=== PATIENT | male | born 1990 | race Caucasian/White ===

== ENCOUNTER 2020-10-28 23:48 | Emergency (ER) | payer SELFPAY ==
[2020-10-29 00:41] LABS: BLOOD UREA NITROGEN,BUN 10 mg/dL (7.0-18.0); CARBON DIOXIDE,CO2 26.4 mmol/L (21.0-32.0); CHLORIDE,CL 101 mmol/L (98-107); GLUCOSE RANDOM 136 mg/dL (74-106); POTASSIUM,K 4.4 mmol/L (3.5-5.1); SODIUM,NA 139 mmol/L (136-148)
[2020-10-29] MEDS ORDERED: Sodium Chloride 0.9% 2.5 ML Syringe FLUSH PRN (01:15)
[2020-10-29] MEDS ORDERED: Sodium Chloride 0.9% 1,000 ML IV ONE (01:15)
[2020-10-29] MEDS ORDERED: Sodium Chloride 0.9% 10 ML Syringe FLUSH PRN (01:15)
[2020-10-29] MEDS ORDERED: Iopamidol 755 MG/ML 500 ML Multipack Bottle IVPUSH STA (01:47)
--- NOTE | 2020-10-29 02:14 | CT ---
INDICATION: Abdominal pain TECHNIQUE: CT Abdomen and pelvis with i.v. contrast. Coronal and sagittal reformats were obtained. CONTRAST: 100 mL Isovue 370 COMPARISON: None FINDINGS: Lower chest: Unremarkable. Liver: Unremarkable. Spleen: Moderate splenomegaly is present measuring 16.8 cm. Pancreas: Unremarkable. Gallbladder: Unremarkable. Kidney: Excretion of contrast into the renal collecting systems noted, which limits evaluation for the presence of stones. Adrenal: Unremarkable. Bowel: Moderate wall thickening in the ascending colon is present with surrounding inflammatory changes and a thickened diverticulum seen on image 102. The appendix is normal in appearance and size. Vascular: Unremarkable. Lymph: Unremarkable. Peritoneum: Unremarkable. No pneumoperitoneum is seen. No significant ascites is noted. Pelvis: Unremarkable. Soft tissue: Unremarkable. Bone: Unremarkable for age. IMPRESSIONS: 1. Moderate wall thickening in the ascending colon is present with surrounding inflammatory changes and a thickened diverticulum seen on image 102. These findings are consistent with acute right-sided diverticulitis. No adjacent peridiverticular abscess is seen. 2. Moderate splenomegaly is present measuring 16.8 cm. Dictated by Jude Hamlin MD @ 10/29/2020 2:11:23 AM Please note that all CT scans at this facility use dose modulation, iterative reconstruction, and/or weight-based dosing when appropriate to reduce radiation dose to as low as reasonably achievable. Dictated by: Jude Hamlin MD @ 10/29/2020 02:11:31 (Electronically Signed)
[2020-10-29] MEDS ORDERED: metroNIDAZOLE 250 MG Tab PO ONE (02:33)
[2020-10-29] MEDS ORDERED: Ciprofloxacin 500 MG Tab PO ONE (02:33)
[2020-10-29] MEDS ORDERED: Amoxicillin/Clavulanate K 875-125 MG Tab PO ONE (02:47)
--- NOTE | 2020-10-29 02:50 | EDM.PDOC ---
ED HPI GENERAL MEDICAL PROBLEM - General Chief Complaint: Abdominal Pain Stated Complaint: POSSIBLE APPENDICITIS Time Seen by Provider: 10/29/20 00:50 Source of Information: Reports: Patient, Family - History of Present Illness INITIAL COMMENTS - FREE TEXT/NARRATIVE: History of present illness: 30-year-old male presenting with right-sided abdominal pain since around 6 PM. No associated nausea or vomiting. Pain is continued to worsen. Does not radiate elsewhere. Patient did have a temperature of 103.5 at home. However on arrival here was afebrile and had not taken any Tylenol or ibuprofen prior to coming in. He was concerned he may have a ruptured appendicitis. Review of systems: As per history of present illness and below otherwise all systems reviewed and negative. Past medical history: As per history of present illness and as reviewed below otherwise noncontributory. Surgical history: As per history of present illness and as reviewed below otherwise noncontributory. Social history: No reported history of drug or alcohol abuse. Non-smoker Family history: As per history of present illness and as reviewed below otherwise noncontributory. Physical exam: GEN: no acute distress, well appearing HEENT: Atraumatic, normocephalic, mucous membranes moist, Neck: supple, nontender, trachea midline. Lungs: No respiratory distress. Heart: RRR Abdomen: Soft, nondistended, right abdominal tenderness, mid abdomen, no right upper quadrant tenderness. No rebound or guarding Back: nontender Extremities: Atraumatic. Neurovascularly intact. Neuro: Awake, alert, oriented. Neuro Exam nonfocal. Skin: warm, dry, no lesions Diagnostics: Labs, CT abdomen/pelvis CT Abdomen and pelvis with i.v. contrast. Coronal and sagittal reformats were obtained. CONTRAST: 100 mL Isovue 370 COMPARISON: None FINDINGS: Lower chest: Unremarkable. Liver: Unremarkable. Spleen: Moderate splenomegaly is present measuring 16.8 cm. Pancreas: Unremarkable. Gallbladder: Unremarkable. Kidney: Excretion of contrast into the renal collecting systems noted, which limits evaluation for the presence of stones. Adrenal: Unremarkable. Bowel: Moderate wall thickening in the ascending colon is present with surrounding inflammatory changes and a thickened diverticulum seen on image 102. The appendix is normal in appearance and size. Vascular: Unremarkable. Lymph: Unremarkable. Peritoneum: Unremarkable. No pneumoperitoneum is seen. No significant ascites is noted. Pelvis: Unremarkable. Soft tissue: Unremarkable. Bone: Unremarkable for age. IMPRESSIONS: 1. Moderate wall thickening in the ascending colon is present with surrounding inflammatory changes and a thickened diverticulum seen on image 102. These findings are consistent with acute right-sided diverticulitis. No adjacent pe ridiverticular abscess is seen. 2. Moderate splenomegaly is present measuring 16.8 cm. Therapeutics: IV fluids MDM: CT scan showing right-sided diverticulitis without perforation or free air. Patient given dose of Augmentin here and will be treated with high-dose Augmentin every 8 hours and referred to general surgery for outpatient follow-up and possible endoscopy once infection has cleared. Discussed this with the patient and he agrees with this plan. Impression: Acute diverticulitis Plan: [] Definitive disposition and diagnosis as appropriate pending reevaluation and review of above. Abdomen Pain Score (Numeric/FACES): 7 - Related Data Allergies Allergy/AdvReac Type Severity Reaction Status Date / Time No Known Allergies Allergy Verified 10/29/20 00:16 Home Meds: Home Meds Amoxicillin/Potassium Clav [Augmentin 875-125 Tablet] 1 each PO TID #30 tablet 10/29/20 [Rx] Past Medical History HEENT History: Reports: None Cardiovascular History: Reports: None Respiratory History: Reports: None Gastrointestinal History: Reports: None Genitourinary History: Reports: None Musculoskeletal History: Reports: None Neurological History: Reports: None Psychiatric History: Reports: None Endocrine/Metabolic History: Reports: None Insulin Pump Model and Vacuum Cleaner Repairer: None Hematologic History: Reports: None Immunologic History: Reports: None Oncologic (Cancer) History: Reports: None Dermatologic History: Reports: None - Infectious Disease History Infectious Disease History: Reports: None Social & Family History - Recreational Drug Use Recreational Drug Use: No ED ROS GENERAL - Review of Systems Review Of Systems: See Below (See dictation) ED EXAM, GENERAL - Physical Exam Exam: See Below (See dictation) Course - Vital Signs Last Recorded V/S: Last Vital Signs Temp 97.6 F 10/29/20 00:05 Pulse 112 H 10/29/20 00:05 Resp 18 10/29/20 00:05 BP 110/80 10/29/20 00:05 Pulse Ox 96 10/29/20 00:05 - Orders/Labs/Meds Orders: Active Orders 24 hr Category Date Time Status Saline Lock Insert [OM.PC] Stat Oth 10/29/20 01:15 Ordered Labs: Laboratory Tests 10/29/20 10/29/20 10/29/20 Range/Units 00:10 00:10 00:10 WBC 11.47 H (4.0-11.0) K/uL RBC 4.56 (4.50-5.90) M/uL Hgb 14.6 (13.0-17.0) g/dL Hct 41.5 (38.0-50.0) % MCV 91.0 (80.0-98.0) fL MCH 32.0 (27.0-32.0) pg MCHC 35.2 (31.0-37.0) g/dL RDW Std Deviation 39.8 (28.0-62.0) fl RDW Coeff of Nancy 12 (11.0-15.0) % Plt Count 225 (150-400) K/uL MPV 10.30 (7.40-12.00) fL Neut % (Auto) 73.9 (48.0-80.0) % Lymph % (Auto) 16.3 (16.0-40.0) % [place] % (Auto) 8.6 (0.0-15.0) % Eos % (Auto) 0.9 (0.0-7.0) % Baso % (Auto) 0.3 (0.0-1.5) % Neut # (Auto) 8.5 H (1.4-5.7) K/uL Lymph # (Auto) 1.9 (0.6-2.4) K/uL [place] # (Auto) 1.0 H (0.0-0.8) K/uL Eos # (Auto) 0.1 (0.0-0.7) K/uL Baso # (Auto) 0.0 (0.0-0.1) K/uL Sodium 139 (136-148) mmol/L Potassium 4.4 (3.5-5.1) mmol/L Chloride 101 (98-107) mmol/L Carbon Dioxide 26.4 (21.0-32.0) mmol/L BUN 10 (7.0-18.0) mg/dL Creatinine 1.3 (0.8-1.3) mg/dL Est Cr Clr Drug Dosing 94.75 mL/min Estimated GFR (MDRD) > 60.0 ml/min Glucose 136 H (74-106) mg/dL Calcium 8.8 (8.5-10.1) mg/dL Total Bilirubin 0.9 (0.2-1.0) mg/dL AST 43 H (15-37) IU/L ALT 87 H (14-63) IU/L Alkaline Phosphatase 56 (46-116) U/L Total Protein 7.9 (6.4-8.2) g/dL Albumin 4.3 (3.4-5.0) g/dL Globulin 3.6 (2.6-4.0) g/dL Albumin/Globulin Ratio 1.2 (0.9-1.6) Urine Color YELLOW Urine Appearance CLEAR Urine pH 8.0 (5.0-8.0) Ur Specific [place] 1.020 (1.001-1.035) Urine Protein NEGATIVE (NEGATIVE) mg/dL Urine Glucose (UA) NEGATIVE (NEGATIVE) mg/dL Urine Ketones NEGATIVE (NEGATIVE) mg/dL Urine Occult Blood NEGATIVE (NEGATIVE) Urine Nitrite NEGATIVE (NEGATIVE) Urine Bilirubin NEGATIVE (NEGATIVE) Urine Urobilinogen 0.2 (<2.0) EU/dL Ur Leukocyte Esterase NEGATIVE (NEGATIVE) Urine RBC 0-1 (0-2/HPF) Urine WBC NONE SEEN (0-5/HPF) Ur Epithelial Cells RARE (NONE-FEW) Urine Bacteria RARE (NEGATIVE) Meds: Medications Discontinued Medications Generic Name Dose Route Start Last Admin Trade Name Freq PRN Reason Stop Dose Admin Amoxicillin/Clavulanate Potassium 1 tab 10/29/20 02:47 10/29/20 02:55 Amoxicillin/Clavulanate K 875-125 Mg Tab PO 10/29/20 02:48 1 tab ONETIME ONE Administration Ciprofloxacin 500 mg 10/29/20 02:33 10/29/20 02:48 Ciprofloxacin 500 Mg Tab PO 10/29/20 02:34 Not Given ONETIME ONE Sodium Chloride 1,000 mls @ 999 mls/hr 10/29/20 01:15 10/29/20 01:21 Normal Saline IV 10/29/20 02:15 999 mls/hr .Bolus ONE Administration Iopamidol 100 ml 10/29/20 01:47 10/29/20 01:48 Iopamidol 755 Mg/Ml 500 Ml Multipack Bottle IVPUSH 10/29/20 01:48 100 ml ONETIME STA Administration Metronidazole 500 mg 10/29/20 02:33 10/29/20 02:48 Metronidazole 250 Mg Tab PO 10/29/20 02:34 Not Given ONETIME ONE Sodium Chloride 10 ml 10/29/20 01:15 Sodium Chloride 0.9% 10 Ml Syringe FLUSH ASDIRECTED PRN Keep Vein Open Sodium Chloride 2.5 ml 10/29/20 01:15 Sodium Chloride 0.9% 2.5 Ml Syringe FLUSH ASDIRECTED PRN Keep Vein Open - Re-Assessments/Exams Free Text/Narrative Re-Assessment/Exam: 10/29/20 02:48 I reassessed the patient. He is resting comfortably and in no acute distress. Discussed all of his results. Discussed findings of right-sided diverticulitis need for antibiotics. Patient has no allergies and therefore will attempt high- dose amoxicillin/clavulanic acid and plan for outpatient GI/surgery follow-up. He agrees with this plan. Departure - Departure Time of Disposition: 02:49 Disposition: Home, Self-Care 01 Clinical Impression: Diverticulitis - Discharge Information Prescriptions: Amoxicillin/Potassium Clav [Augmentin 875-125 Tablet] 1 each PO TID #30 tablet Instructions: Diverticulitis, [id number], Abdominal Pain, Adult, [id number] Referrals: PCP,None [Primary Care Provider] - Forms: ED Department Discharge Additional Instructions: The following information is given to patients seen in the emergency department who are being discharged to home. This information is to outline your options for follow-up care. We provide all patients seen in our emergency department with a follow-up referral. The need for follow-up, as well as the timing and circumstances, are variable depending upon the specifics of your emergency department visit. If you don't have a primary care physician on staff, we will provide you with a referral. We always advise you to contact your personal physician following an emergency department visit to inform them of the circumstance of the visit and for follow-up with them and/or the need for any referrals to a consulting specialist. The emergency department will also refer you to a specialist when appropriate. This referral assures that you have the opportunity for follow-up care with a specialist. All of these measure are taken in an effort to provide you with optimal care, which includes your follow-up. Under all circumstances we always encourage you to contact your private physician who remains a resource for coordinating your care. When calling for follow-up care, please make the office aware that this follow-up is from your recent emergency room visit. If for any reason you are refused follow-up, please contact the [facility] Emergency Department at and asked to speak to the emergency department charge nurse. [facility] - Primary [facility] [address], [place] [address] [facility] [address] [place] [address] [facility] [place] [facility] Professional [facility] [address] [place] [address], [address] [place] [address] Sepsis Event Note (ED) - Evaluation Sepsis Screening Result: No Definite Risk - Focused Exam Vital Signs: Vital Signs Temp Pulse Resp BP Pulse Ox 10/29/20 00:05 97.6 F 112 H 18 110/80 96 - My Orders Last 24 Hours: My Active Orders 10/29/20 01:15 Saline Lock Insert [OM.PC] Stat - Assessment/Plan Last 24 Hours: My Active Orders 10/29/20 01:15 Saline Lock Insert [OM.PC] Stat
== END 2020-10-29 03:00 | disposition home or self-care (01) ==
LOC: MW.ED 23:48
DX: K57.32 Diverticulitis of large intestine without perforation or abscess without bleeding (principal)
CPT/HCPCS: 36415; 74177; 80053; 81001; 85025; 99284; A9270; J7030; Q9967